=== PATIENT | female | born 1975 | race African-American/Black ===

== ENCOUNTER 2017-12-01 10:58 | Emergency (ER) | payer MEDICAID ==
[~2017-12-01] VITALS: Ht 172.7 cm; Wt 104.5 kg
[~2017-12-01 10:58] MED LIST: BETAPACE 80 MG80 MG PO; ZESTRIL40 MG PO
[2017-12-01 11:00] VITALS: Ht 172.7 cm; Wt 104.5 kg
[2017-12-01 12:37] LABS: BASOPHILS 0.1 % (0-2); EOSINOPHILS 0.6 % (0-7); HEMATOCRIT 38.6 % (36.0-48.0); HEMOGLOBIN 12.8 g/dL (12-16); IMMATURE GRANULOCYTES 0.2 % (0-5); LYMPHOCYTES 12.1 % (15-50); MCH 27.9 pg (26.0-34.0); MCHC 33.2 g/dL (31.0-37.0); MCV 84.3 fL (80.0-100.0); MEAN PLATELET VOLUME 10.4 fL (7.4-10.4); MONOCYTES 4.3 % (2-11); NEUTROPHILS 82.7 % (40-80); PLATELET COUNT 222 10x3/uL (130-400); RBC 4.58 10x6/uL (4.00-5.40); RDW 13.7 % (11.5-14.5); WBC 8.2 10x3/uL (4.8-10.8)
[2017-12-01 12:56] LABS: ALBUMIN 3.8 g/dL (3.4-5.0); ALKALINE PHOSPHATASE 55 U/L (46-116); ALT (SGPT) 36 U/L (10-68); BILIRUBIN - TOTAL 0.47 mg/dL (0.2-1.3); CALC OSMOLALITY 278 mosm/kg (275-300); CALCIUM 9.3 mg/dL (8.5-10.1); CARBON DIOXIDE 27.2 mmol/L (21.0-32.0); CHLORIDE - SERUM 104 mmol/L (98-107); CREATINE KINASE 292 UL (21-215); CREATININE - SERUM 1.1 mg/dL (0.6-1.3); GLUCOSE 107 mg/dL (74-106); POTASSIUM - SERUM 3.5 mmol/L (3.5-5.1); PROTEIN - SERUM 8.4 g/dL (6.4-8.2); SODIUM 140 mmol/L (136-145); TROPONIN-I < 0.017 ng/mL (0.000-0.060); UREA NITROGEN 12 mg/dL (7-18); eGFR NON AFRICAN AMERICAN 58 mL/min (90-120)
[2017-12-01 13:35] LABS: HCG SERUM NEGATIVE (NEGATIVE)
[2017-12-02 01:26] VITALS: BP 142/87
== END 2017-12-02 01:27 | disposition other institution (70) ==
LOC: D.ER 10:58
PROVIDERS: Family Medicine
DX: R55 Syncope and collapse (principal); R51 Headache; G93.2 Benign intracranial hypertension

== ENCOUNTER → 2019-02-12 10:27 | Outpatient (CLI) | payer OTHER ==
[2017-12-01 11:00] VITALS: BMI 35.0
--- NOTE | 2019-02-15 10:47 | EC ---
PATIENT:JORGE QIU DATE OF SERVICE: 02/12/19 SEX: F MEDICAL RECORD: [id number] DATE OF : [birth year] [facility] AGE OF PATIENT: 43 ADMISSION DATE: 02/12/19 REFERRING PHYSICIAN: INTERPRETING PHYSICIAN: MANINDER MAYEN MD ECHOCARDIOGRAM REPORT ECHO CHARGES 4 ECHO COMPLETE Date: 02/12/19 CLINICAL DIAGNOSIS: HTN HX ICD/VT ECHOCARDIOGRAPHIC MEASUREMENTS (adult normal given) AC root (d.<3.7cm) 3.1 cm LV Septum d (<1.2 cm> 1.6 cm Valve Excursion 1.4 cm LV Septum (systole) 1.9 cm Left Atria (s.<4.0cm> 3.9 cm LVPW d(<1.2cm) 1.4 cm RV (d.<2.3cm) 3.8 cm LVPW (sytole) 1.7 cm LV diastole(<5.6CM) 5.5 cm MV E-F(>70mm/sec) cm LV systole 3.7 cm LVOT Diameter 2.0 cm MV exc.(>10mm) 2.0 cm Est.ejection fraction (50-75%) % DOPPLER: LVIT cm/sec A 53.0 cm/sec E 85.0 cm/sec LA cm/sec RVSP 29 mmHg LVOT 99 cm/sec AOP1/2T m/s Asc. Ao 124 cm/sec RVOT 80 cm/sec RA cm/sec PA 98 cm/sec AV Gradient Peak 6.11 mmHg AV Mean 3.54 mmHg AV Area 2.7 cm MV Gradient Peak 5.51 mmHg MV Mean 1.88 mmHg MV Area cm COMMENTS: [employer] Helper: Masood BAIG Chemic Mangler: 1 Dr. Mayen TAPE# PACS Pericardial Effusion N DATE OF SERVICE: 02/12/2019 PROCEDURE: Echocardiogram. FINDINGS: 1. Left ventricular chamber size is within normal limits. Left ventricular systolic function is normal. Overall ejection fraction estimated at 60% to 65%. 2. Left atrium, right atrium, and right ventricular chamber sizes are within normal limits. 3. Valvular structures have normal structure and motion. ECHOCARDIOGRAM REPORT [id number] JORGE QIU 4. Doppler interrogation reveals trace mitral regurgitation, trace tricuspid regurgitation, no other valvular insufficiency or stenosis. 5. No evidence of pericardial effusion or left ventricular thrombus. TRANSINT:[id number] Voice Confirmation ID: [id number] DOCUMENT ID: [id number] MANINDER MAYEN MD at 1047 CC: [id number] DICTATION DATE: 02/13/19 1228 INSURANCE VERIFICATION REPRESENTATIVE: 02/13/19 1256 DEP CLI 02/12/19 [place] [id number] [place] [id number]
== END | disposition home or self-care (01) ==
LOC: D.HCCARDIO 01-29 09:00
PROVIDERS: ATTEND Internal Medicine Interventional Cardiology
DX: I10 Essential (primary) hypertension (principal)

== ENCOUNTER 2019-12-26 20:04 | Emergency (ER) | payer BC ==
[~2019-12-26] VITALS: Ht 172.7 cm; Wt 129.5 kg
[2019-12-26 20:36] LABS: BASOPHILS 0.3 % (0-2); EOSINOPHILS 0.4 % (0-7); HEMATOCRIT 40.9 % (36.0-48.0); HEMOGLOBIN 13.2 g/dL (12-16); IMMATURE GRANULOCYTES 0.2 % (0-5); MCH 28.5 pg (26.0-34.0); MCHC 32.3 g/dL (31.0-37.0); MCV 88.3 fL (80.0-100.0); MEAN PLATELET VOLUME 10.2 fL (7.4-10.4); MONOCYTES 5.8 % (2-11); NEUTROPHILS 64.3 % (40-80); RBC 4.63 10x6/uL (4.00-5.40); WBC 10.1 10x3/uL (4.8-10.8)
[2019-12-26 20:41] LABS: PLATELET COUNT 332 10x3/uL (130-400)
[2019-12-26 20:43] VITALS: Ht 172.7 cm; Wt 129.5 kg
[2019-12-26 20:45] LABS: CALC OSMOLALITY 276 mosm/kg (275-300); CALCIUM 9.3 mg/dL (8.5-10.1); CARBON DIOXIDE 30.3 mmol/L (21.0-32.0); CHLORIDE - SERUM 101 mmol/L (98-107); CREATININE - SERUM 1.2 mg/dL (0.6-1.3); GLUCOSE 107 mg/dL (74-106); POTASSIUM - SERUM 3.7 mmol/L (3.5-5.1); SODIUM 138 mmol/L (136-145); UREA NITROGEN 15 mg/dL (7-18); eGFR NON AFRICAN AMERICAN 52 mL/min (90-120)
[2019-12-26] MEDS ORDERED: COREG12.5 MG PO (20:47)
[2019-12-26] MEDS ORDERED: LISINOPRIL40 MG PO (20:48)
[2019-12-26] MEDS ORDERED: COREG6.25 MG PO (20:49)
[2019-12-26 20:57] LABS: APTT 29.8 SECONDS (22.8-39.4); INR 1.01 (0.85-1.17); PROTIME 13.3 SECONDS (11.6-15.0)
[2019-12-26 21:00] LABS: ALBUMIN 4.3 g/dL (3.4-5.0); ALKALINE PHOSPHATASE 53 U/L (30-120); ALT (SGPT) 32 U/L (10-68); BILIRUBIN - TOTAL 0.58 mg/dL (0.2-1.3); C-REACTIVE PROTEIN 0.7 mg/dL (0.0-0.9); MAGNESIUM - SERUM 1.9 mg/dL (1.8-2.4); PRO BNP 76 pg/mL (0-125); PROTEIN - SERUM 8.6 g/dL (6.4-8.2); THYROID STIMULATING HORMONE 1.14 uIU/mL (0.36-3.74); TROPONIN-I < 0.017 ng/mL (0.000-0.060)
[2019-12-26 21:25] VITALS: BP 172/115
[2019-12-26 22:06] LABS: BILIRUBIN NEGATIVE (NEGATIVE); GLUCOSE NEGATIVE (NEGATIVE); KETONE NEGATIVE (NEGATIVE); NITRITE POSITIVE (NEGATIVE); UROBILINOGEN NORMAL (NORMAL)
[2019-12-26 22:19] LABS: BACTERIA MANY /hpf (NEGATIVE); EPITHELIAL CELLS 0-5 /hpf (0-5); RED CELLS - URINE 0-5 /hpf (0-5); WHITE CELLS - URINE 0-5 /hpf (NEGATIVE)
[2019-12-26 22:51] VITALS: BP 167/105
[2019-12-26 23:12] VITALS: BP 151/95
[2019-12-26 23:27] VITALS: BP 151/95
== END 2019-12-26 23:29 | disposition home or self-care (01) ==
LOC: OBSVTIME → D.ER 20:04 → D.EDHOLD 21:54 → OBSVTIME 21:54
PROVIDERS: Family Medicine
DX: R53.1 Weakness (principal); I42.9 Cardiomyopathy, unspecified; I10 Essential (primary) hypertension

== ENCOUNTER 2020-01-14 18:00 | Outpatient (CLI) | payer BC ==
[2019-12-26 20:43] VITALS: BMI 43.4
[~2020-01-14 18:00] MED LIST changes: +COREG12.5 MG PO; +COREG6.25 MG PO; +LISINOPRIL40 MG PO
== END 2020-01-14 23:59 | disposition home or self-care (01) ==
LOC: D.MAMMO 18:00
PROVIDERS: ATTEND Family Medicine
DX: Z12.31 Encounter for screening mammogram for malignant neoplasm of breast (principal)

== ENCOUNTER → 2020-02-18 07:28 | Outpatient (CLI) | payer BC ==
[2019-12-26 20:43] VITALS: BMI 43.4
== END | disposition home or self-care (01) ==
LOC: D.US 02-04 14:30
PROVIDERS: ATTEND Family Medicine
DX: R92.8 Other abnormal and inconclusive findings on diagnostic imaging of breast (principal)